=== PATIENT | male | born 1970 | race Caucasian/White ===

== ENCOUNTER 2018-10-12 21:50 | Emergency (ER) | payer OTHER ==
[2018-10-12 22:04] VITALS: BP 122/80; PULSE 75; TEMP 98.2; BMI 30.7
[2018-10-12] MEDS ORDERED: IBUPROFEN 600 MG TABLET (FP) PO ONE ×2 (22:57→23:50)
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
== END 2018-10-12 23:55 | disposition home or self-care (01) ==
LOC: JERFT 21:50 → JER 21:50
DX: S93.691A Other sprain of right foot, initial encounter (principal); V48.0XXA Car driver injured in noncollision transport accident in nontraffic accident, initial encounter; Y92.488 Other paved roadways as the place of occurrence of the external cause; Y93.89 Activity, other specified; Y99.8 Other external cause status
CPT/HCPCS: 73610-TC-RT-FY; 73630-TC-RT-FY; 99281-25